=== PATIENT | male | born 2005 ===

== ENCOUNTER 2025-03-31 11:24 | Emergency (ER) | payer OTHER ==
[~2025-03-31] VITALS: Ht 167.6 cm; Wt 68.9 kg
[2025-03-31 11:38] VITALS: BP 119/53; O2SAT 98
[2025-03-31] MEDS ORDERED: IBUPROFEN800 MG PO (12:52)
[2025-03-31] MEDS ORDERED: DEXAMETHASONE SODIUM PHOSPHATE 4 MG/ML VIAL IM ONE (13:00)
[2025-03-31] MEDS ORDERED: KETOROLAC TROMETHAMINE 60 MG VIAL IM ONE (13:00)
[2025-03-31] MEDS ORDERED: ORPHENADRINE CITRATE 100 MG TABLET PO ONE (13:00)
== END 2025-03-31 13:10 | disposition home or self-care (01) ==
LOC: ER 12:44
DX: M75.51 Bursitis of right shoulder (principal)
CPT/HCPCS: 96372; 99282; J1100; J1885